=== PATIENT | male | born 2000 | race Caucasian/White ===

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

== ENCOUNTER 2022-08-08 22:59 | Emergency (ER) | payer MEDICAID ==
[~2022-08-08] VITALS: Ht 182.8 cm; Wt 114.7 kg
[~2022-08-08 22:59] MED LIST changes: +FLUV100T21 PO; -GUAN1TAB30 PO; +GUAN1TAB38 PO
--- NOTE | 2022-08-08 23:11 | ED EENT ---
History of Present Illness General Stated Complaint: CONGESTION - FEVER - L EAR PAIN Source: patient, family Exam Limitations: no limitations History of Present Illness Date Seen by Provider: Aug 08, 2022 Time Seen by Provider: 23:11 Initial Comments 21-year-old male presents emerged department today for red eyes, left ear pain, sore throat runny nose and cough. Symptoms started about a week ago. They saw his doctor on Wednesday and he started him on Keflex. He had a coughing fit just prior to arrival and his dad states that his eyes are red. His father has similar symptoms. Allergies and Home Medications Allergies Coded Allergies: risperidone (Unverified Allergy, Mild, 06/15/09) diphenhydramine (Verified Allergy, Unknown, MAKES HIM ANGRY, 02/02/18) divalproex sodium (Verified Allergy, Unknown, 02/02/18) quetiapine (Verified Allergy, Unknown, MAKES HEART SKIP, 02/02/18) Patient Home Medication List Home Medication List Reviewed: Yes Aripiprazole (Aripiprazole) 30 Mg Tablet, 15 MG PO BID, (Reported) Entered as Reported by: ALEX DUPREE on 02/02/18 1439 Desmopressin Acetate (Desmopressin Acetate) 0.2 Mg Tablet, 0.6 MG PO HS, (Reported) Entered as Reported by: ALEX DUPREE on 02/02/18 1439 Fluvoxamine Maleate (Fluvoxamine Maleate) 100 Mg Tablet, 100 MG PO BID, (Rep orted) Entered as Reported by: ALEX DUPREE on 02/02/18 1439 Guanfacine HCl (Guanfacine HCl ER) 4 Mg Tab.er.24h, 4 MG PO DAILY, (Reported) Entered as Reported by: ALEX DUPREE on 02/02/18 1439 Haloperidol (Haloperidol) 2 Mg Tablet, 2 MG PO BID, (Reported) Entered as Reported by: MILAGROS SOLIS on 11/09/192040 [place] Carbonate ([place] Carbonate ER) 300 Mg Tablet.er, 600 MG PO, (Reported) Entered as Reported by: MILAGROS SOLIS on 11/09/192040 Oxcarbazepine (Oxcarbazepine) 300 Mg Tablet, 900 MG PO BID, (Reported) Entered as Reported by: ALEX DUPREE on 02/02/18 1439 Oxybutynin Chloride (Oxybutynin Chloride ER) 5 Mg Tab.er.24, 5 MG PO DAILY, (Reported) Entered as Reported by: ALEXCatrina DUPREE on 02/02/18 1439 Sulfacetm Na/Prednisol AC (Blephamide Eye Ointment) 10 %-0.2 % Oint...g., 3.5 GM OP Q4H Prescribed by: BAM PORTILLO MD on 08/08/22 2554 Review of Systems Review of Systems Constitutional: no symptoms reported Eyes: Inflammation Ears: Pain Nose: clear discharge Mouth: no symptoms reported Throat: pain Respiratory: cough Cardiovascular: no symptoms reported Gastrointestinal: no symptoms reported Musculoskeletal: no symptoms reported Skin: no symptoms reported Neurological: No Symptoms Reported Hematologic/Lymphatic: No Symptoms Reported Immunological/Allergic: no symptoms reported Past Ikmjueb-Iwojou-Vhhvsa Hx Patient Social History Tobacco Use?: No Use of E-Cig and/or Vaping dev: No Substance use?: No Alcohol Use?: No Seasonal Allergies Seasonal Allergies: No Past Medical History Surgeries: Yes (CIRCUMCISION WITH REVISION. ) Tonsillectomy Respiratory: No Cardiac: No Neurological: Yes Developmental Disorder Genitourinary: Yes (BEDWETTING/NOCTURNAL ENURESIS--ON OXYBUTYNIN AND DESMOPR ESSIN) Gastrointestinal: No Musculoskeletal: Yes (SEVERE PES PLANUS/TALIPES VALGUS) Endocrine: No Cancer: No Psychosocial: Yes (MR, AUTISM, TOURETTE'S, ADHD, BIPOLAR, COMPULSIVE DISORDER, ODD, IDD. ) ADD/ADHD, ODD, Bipolar, Personality Disorder, Violent Behavior Integumentary: No Blood Disorders: No Family Medical History Reviewed Nursing Family Hx No Pertinent Family Hx Physical Exam Vital Signs Vital Signs - First Documented 08/08/22 23:05 Temp 36.8 Pulse 104 Resp 18 B/P (MAP) 155/88 (110) Pulse Ox 97 O2 Delivery Room Air Height, Weight, BMI Height: 5'7.50" Weight: 195lbs. 0.0oz. 88.473877tk; 33.00 BMI Method:Stated General Appearance: WD/WN, no apparent distress Eyes: bilateral eye other (Sclera injected bilaterally. Conjunctival erythema. Clear drainage.) Ears: bilateral ear other (Bilateral TMs appear normal to me. No erythema or bulging. No purulence. TMs are intact.) Nose: normal inspection Mouth/Throat: normal mouth inspection, pharynx normal Neck: non-tender, full range of motion, supple, normal inspection Cardiovascular: regular rate, rhythm, no edema, no gallop, no JVD, no murmur Respiratory: chest non-tender, lungs clear, normal breath sounds, no respiratory distress, no accessory muscle use Gastrointestinal: normal bowel sounds, non tender, soft, no organomegaly Neurologic/Psychiatric: alert, normal mood/affect, oriented x 3 Skin: normal color, warm/dry Progress/Results/Core Measures Results/Orders Vital Signs/I&O 08/08/22 23:05 Temp 36.8 Pulse 104 Resp 18 B/P (MAP) 155/88 (110) Pulse Ox 97 O2 Delivery Room Air Departure Communication (Admissions) Patient is hemodynamically stable. Symptoms consistent with viral upper respiratory infection which is likely why the antibiotics are not working. He does appear to have bilateral conjunctivitis. Possible viral however we will go ahead and give him eyedrops to cover for any bacterial sources. His TM appears normal to me though he does have some left ear pain subjectively. He is already on Keflex and will have him continue this. Advised increase his fluids use possible Claritin or Monica, antibiotic eyedrops as well as some Flonase and bilateral nostrils to help with the symptoms. He and his father state understanding and he is discharged in otherwise stable condition after questions were sought and answered Impression Primary Impression: Upper respiratory infection Qualified Codes: J06.9 - Acute upper respiratory infection, unspecified Additional Impression: Conjunctivitis Qualified Codes: H10.33 - Unspecified acute conjunctivitis, bilateral Disposition: 01 HOME, SELF-CARE Condition: Stable Departure-Patient Inst. Referrals: THU CRISTOBAL DO (PCP/Family) Primary Care Physician Patient Instructions: Conjunctivitis ([facility]) ED, Viral Upper Respiratory Infection, Adult (DC) Add. Discharge Instructions: Continue the antibiotics as prescribed until they are gone. Use the eyedrops for 5 days. This should help with the irritation. Use ibuprofen and Tylenol as needed for ear pain. The upper respiratory type symptoms with a cough and sore throat are likely related to a virus we will have to pass on their own. I recommend you get Flonase with a generic version of it and use 2 sprays in each nostril twice a day to help with his ear nose symptoms. He may also try an neeo-due-xoynybw allergy medication like Claritin or Monica which may help. Return to the emergency department for any severe concerns. Follow-up with his doctor for any nonemergent needs. Scripts Sulfacetm Na/Prednisol AC (Blephamide Eye Ointment) 10 %-0.2 % Oint...g. 3.5 GM OP Q4H for 5 Days, #1 EA Prov: BAM PORTILLO DO 08/08/22 BAM PORTILLO DO Aug 08, 2022 23:11
[2022-08-08] MEDS ORDERED: NA S OP (23:24)
[2022-08-08 23:30] VITALS: BP 137/74
== END 2022-08-08 23:30 | disposition home or self-care (01) ==
LOC: EDUNIT# 22:59 → ER 23:00
DX: J06.9 Acute upper respiratory infection, unspecified (principal); H10.9 Unspecified conjunctivitis
CPT/HCPCS: 99282

== ENCOUNTER → 2023-06-05 | Outpatient (CLI) | payer MEDICAID ==
[~2023-06-05] MED LIST changes: +NA S OP
== END ==
LOC: LAB 14:06
PROVIDERS: ATTEND Nurse Practitioner Family
DX: L40.0 Psoriasis vulgaris (principal)
CPT/HCPCS: 36415; 86480